=== PATIENT | male | born 1960 | race Caucasian/White ===

== ENCOUNTER → 2017-10-30 | Outpatient (CLI) | payer OTHER ==
[~2017-10-30] MED LIST: HYDR-2966 PO; HYDR-385 PO; LEVO500T83 PO; LISI20TA29 PO; ONDA4TAB PO
--- NOTE | 2017-10-30 19:07 | RADIOLOGY IMAGING REPORT ---
FACILITY: [facility] PATIENT NAME: Maxx Baldwin : 1960 MR: [id number] V: [id number] EXAM DATE: ORDERING PHYSICIAN: NATO GALLARDO TECHNOLOGIST: Location: [facility] - [place] Patient: Maxx Baldwin : 1960 Visit/Account:[id number] Date of Sevice: 10/30/2017 EXAMINATION: Scrotal ultrasound with duplex Doppler evaluation. HISTORY: Right testicular pain. COMPARISON: None. FINDINGS: Right testis: Normal size, morphology, and echogenicity. The right testis measures 3.3 x 2.8 x 2.4 cm . No focal intratesticular mass. The right testis demonstrates normal vascularity with color and spec tral Doppler. Right epididymis: The right epididymis is heterogeneous with increased vascularity, which may be comp atible with epididymitis. The right epididymal head measures 1.3 cm. There is a large complex right hydrocele with multiple septations and echogenic fluid. There is some increased vascularity in the adjacent scrotal wall. Left testis: Normal size, morphology, and echogenicity. The left testis measures 3.4 x 2.0 x 2.1 cm. No focal intratesticular mass. The left testis demonstrates normal vascularity with color and spectra l Doppler. Left epididymis: Normal ultrasound appearance with normal vascularity. The left epididymal head measu res 0.6 cm. Normal vascularity with Doppler. No left-sided hydrocele. There is a small left varicocele. IMPRESSION: 1. Normal ultrasound appearance of the testicles, with normal vascularity. 2. The right epididymis is heterogeneous and appears hypervascular. Ultrasound appearance may be comp atible with epididymitis. 3. Large complex right hydrocele with multiple septations and echogenic fluid. Infected hydrocele or pyocele is not excluded. There is some increased vascularity in the adjacent scrotal wall which could represent cellulitis. 4. Small left varicocele. Findings were discussed with NATO GALLARDO at 10/30/2017 7:01 PM. Report Dictated By: Alfredo Sanches MD at 10/30/2017 6:54 PM Report E-Signed By: Alfredo Sanches MD at 10/30/2017 7:03 PM WSN:[id number]
== END ==
LOC: US 17:39
PROVIDERS: ATTEND Nurse Practitioner Family
DX: N45.1 Epididymitis (principal)
CPT/HCPCS: 76870

== ENCOUNTER 2017-10-31 17:43 | Emergency (ER) | payer OTHER ==
[2017-10-31] MEDS ORDERED: LISI20TA29 PO (17:56)
[2017-10-31] MEDS ORDERED: LEVO500T83 PO (17:57)
[2017-10-31] MEDS ORDERED: HYDR-2966 PO (17:57)
[2017-10-31] MEDS ORDERED: HYDR-385 PO (17:58)
--- NOTE | 2017-10-31 18:01 | ER Report ---
History and Physical Time Seen By MD: 18:00 Hx. of Stated Complaint: WAS HERE YESTERDAY. WAS GIVEN PAIN MEDS THAT HE TOOK TODAY ON AN EMPTY STOMACHE. HAS BEEN VOMITING EVER SINCE HPI/ROS CHIEF COMPLAINT: Vomiting HISTORY OF PRESENT ILLNESS: 57-year-old male presents ambulatory to the ER after being seen yesterday in urgent care and having an outpatient testicular ultrasound. He has a swollen right scrotum. An ultrasound showed septations in the hydrocele, epididymitis and edema in the scrotum consistent with cellulitis. Patient was started on Levaquin and hydrocodone for pain relief. He's been vomiting today and keep his medications down. He denies fever or chills. REVIEW OF SYSTEMS: Respiratory: No cough, no dyspnea. Cardiovascular: No chest pain, no palpitations. Gastrointestinal: As above Musculoskeletal: No back pain. Home Meds Active Scripts Ondansetron (ZOFRAN ODT) 4 Mg Tab.rapdis, 4 MG PO every 6 hours PRN for NAUSEA/VOMITING, #15 TAB TAKE 1 TABLET BY MOUTH EVERY 12 HOURS Prov:ELGIN REDDING DO 10/31/17 Reported Medications Hydrocodone Bit/Acetaminophen (HYDROCODON-ACETAMINOPHEN 5-325) 1 Each Tablet, 1- 2 EACH PO Q6H, #12 TAB 10/31/17 Levofloxacin 500 Mg Tab (LEVOFLOXACIN 500 MG TAB) 500 Mg Tablet, 500 MG PO, TAB 10/31/17 Hydrochlorothiazide (HYDROCHLOROTHIAZIDE) 25 Mg Tablet, 1 TAB PO QDAY, TAB 10/31/17 Lisinopril (LISINOPRIL) 20 Mg Tablet, 20 MG PO QDAY, TAB 10/31/17 Reviewed Nurses Notes: Yes Old Medical Records Reviewed: Yes Hx Substance Use Disorder: No Hx Alcohol Use: Yes (DAILY) Constitutional Vital Sign - Last 24 Hours 10/31/17 10/31/17 10/31/17 10/31/17 17:46 17:49 17:58 18:13 Pulse 71 69 69 Resp 16 B/P (MAP) 192/99 192/99 (130) Pulse Ox 91 92 87 O2 Delivery Room Air 10/31/17 10/31/17 10/31/17 10/31/17 18:28 18:43 18:58 19:11 Pulse 66 66 67 B/P (MAP) 138/89 (105) Pulse Ox 89 93 93 10/31/17 10/31/17 10/31/17 10/31/17 19:13 19:28 19:33 19:48 Pulse 65 ??? 60 61 Pulse Ox 95 94 95 93 Intake and Output 10/31/17 10/31/17 11/01/17 15:00 23:00 07:00 Intake Total 1000 ml Balance 1000 ml Physical Exam Vital signs stable, grossly elevated blood pressure, afebrile, pulse ox normal General Appearance: The patient is alert, has no immediate need for airway protection and no current signs of toxicity. Skin warm, dry, pink HEENT: Pupils equal and round no injection. Oropharynx without redness or exudate, mucous. Membranes are moist Respiratory: Chest is non tender, lungs are clear to auscultation. Cardiac: regular rate and rhythm Gastrointestinal: Abdomen is soft and non tender, no masses, bowel sounds normal. Genital: Circumcised male genitalia. The right scrotum is grossly swollen to twice its normal size. It is erythematous. It is mildly tender. Musculoskeletal: Neck: Neck is supple and non tender. No lymphadenopathy Extremities have full range of motion and are non tender. No edema, no calf tenderness Skin: No rashes or lesions. DIFFERENTIAL DIAGNOSIS: After history and physical exam differential diagnosis was considered for scrotal infection, epididymitis, cellulitis, UTI Medical Decision Making Data Points Result Diagram: 10/31/17 1752 10/31/17 1752 Laboratory Hematology Test 10/31/17 17:52 10/31/17 18:20 Red Blood Count 4.90 M/uL (4.00-5.60) Mean Corpuscular Volume 99.9 fL (80.0-96.0) Mean Corpuscular Hemoglobin 34.9 pg (26.0-33.0) Mean Corpuscular Hemoglobin Concent 35.0 g/dL (32.0-36.0) Red Cell Distribution Width 14.5 % (11.5-14.5) Mean Platelet Volume 8.7 fL (7.2-11.1) Neutrophils (%) (Auto) 83.2 % (39.4-72.5) Lymphocytes (%) (Auto) 6.2 % (17.6-49.6) Monocytes (%) (Auto) 10.3 % (4.1-12.4) Eosinophils (%) (Auto) 0.0 % (0.4-6.7) Basophils (%) (Auto) 0.3 % (0.3-1.4) Nucleated RBC Relative Count (auto) 0.1 /100WBC Neutrophils # (Auto) 8.1 K/uL (2.0-7.4) Lymphocytes # (Auto) 0.6 K/uL (1.3-3.6) Monocytes # (Auto) 1.0 K/uL (0.3-1.0) Eosinophils # (Auto) 0.0 K/uL (0.0-0.5) Basophils # (Auto) 0.0 K/uL (0.0-0.1) Nucleated RBC Absolute Count (auto) 0.01 K/uL Erythrocyte Sedimentation Rate 20 mm/HOUR (0-20) Sodium Level 137 mmol/L (137-145) Potassium Level 3.4 mmol/L (3.5-5.0) Chloride Level 94 mmol/L (98-107) Carbon Dioxide Level 24 mmol/L (22-30) Blood Urea Nitrogen 9 mg/dl (9-21) Creatinine 0.60 mg/dl (0.66-1.25) Glomerular Filtration Rate Calc > 60.0 Random Glucose 175 mg/dl (75-110) Calcium Level 9.5 mg/dl (8.4-10.2) Total Bilirubin 1.7 mg/dl (0.2-1.3) Aspartate Amino Transf (AST/SGOT) 93 U/L (0-35) Alanine Aminotransferase (ALT/SGPT) 89 U/L (0-56) Alkaline Phosphatase 91 U/L (0-126) C-Reactive Protein 6.9 mg/dl (<1.0) Total Protein 8.8 g/dl (6.3-8.2) Albumin 5.1 g/dl (3.5-5.0) Amylase Level 82 U/L (0-110) Lipase 343 U/L (23-300) Urine Color Yellow Urine Clarity Slightly-cloudy Urine pH 5.0 pH (4.8-9.5) Urine Specific Chancellor 1.021 Urine Protein 100 mg/dL (NEGATIVE) Urine Glucose (UA) 50 mg/dL (NEGATIVE) Urine Ketones 80 mg/dL (NEGATIVE) Urine Blood Negative (NEGATIVE) Urine Nitrite Negative (NEGATIVE) Urine Bilirubin Negative (NEGATIVE) Urine Urobilinogen Negative mg/dL (0.2-1.9) Urine Leukocyte Esterase Moderate (NEGATIVE) Urine RBC 7 /HPF (0-2/HPF) Urine WBC 245 /HPF (0-5/HPF) Urine Squamous Epithelial Cells Few /LPF (</=FEW) Urine Bacteria Negative /HPF (NONE-FEW) Urine Mucus Few /HPF (NONE-FEW) Chemistry Test 10/31/17 17:52 10/31/17 18:20 White Blood Count 9.8 k/uL (4.5-11.0) Red Blood Count 4.90 M/uL (4.00-5.60) Hemoglobin 17.1 g/dL (14.0-18.0) Hematocrit 49.0 % (42.0-52.0) Mean Corpuscular Volume 99.9 fL (80.0-96.0) Mean Corpuscular Hemoglobin 34.9 pg (26.0-33.0) Mean Corpuscular Hemoglobin Concent 35.0 g/dL (32.0-36.0) Red Cell Distribution Width 14.5 % (11.5-14.5) Platelet Count 124 K/uL (150-450) Mean Platelet Volume 8.7 fL (7.2-11.1) Neutrophils (%) (Auto) 83.2 % (39.4-72.5) Lymphocytes (%) (Auto) 6.2 % (17.6-49.6) Monocytes (%) (Auto) 10.3 % (4.1-12.4) Eosinophils (%) (Auto) 0.0 % (0.4-6.7) Basophils (%) (Auto) 0.3 % (0.3-1.4) Nucleated RBC Relative Count (auto) 0.1 /100WBC Neutrophils # (Auto) 8.1 K/uL (2.0-7.4) Lymphocytes # (Auto) 0.6 K/uL (1.3-3.6) Monocytes # (Auto) 1.0 K/uL (0.3-1.0) Eosinophils # (Auto) 0.0 K/uL (0.0-0.5) Basophils # (Auto) 0.0 K/uL (0.0-0.1) Nucleated RBC Absolute Count (auto) 0.01 K/uL Erythrocyte Sedimentation Rate 20 mm/HOUR (0-20) Glomerular Filtration Rate Calc > 60.0 Calcium Level 9.5 mg/dl (8.4-10.2) Total Bilirubin 1.7 mg/dl (0.2-1.3) Aspartate Amino Transf (AST/SGOT) 93 U/L (0-35) Alanine Aminotransferase (ALT/SGPT) 89 U/L (0-56) Alkaline Phosphatase 91 U/L (0-126) C-Reactive Protein 6.9 mg/dl (<1.0) Total Protein 8.8 g/dl (6.3-8.2) Albumin 5.1 g/dl (3.5-5.0) Amylase Level 82 U/L (0-110) Lipase 343 U/L (23-300) Urine Color Yellow Urine Clarity Slightly-cloudy Urine pH 5.0 pH (4.8-9.5) Urine Specific Chancellor 1.021 Urine Protein 100 mg/dL (NEGATIVE) Urine Glucose (UA) 50 mg/dL (NEGATIVE) Urine Ketones 80 mg/dL (NEGATIVE) Urine Blood Negative (NEGATIVE) Urine Nitrite Negative (NEGATIVE) Urine Bilirubin Negative (NEGATIVE) Urine Urobilinogen Negative mg/dL (0.2-1.9) Urine Leukocyte Esterase Moderate (NEGATIVE) Urine RBC 7 /HPF (0-2/HPF) Urine WBC 245 /HPF (0-5/HPF) Urine Squamous Epithelial Cells Few /LPF (</=FEW) Urine Bacteria Negative /HPF (NONE-FEW) Urine Mucus Few /HPF (NONE-FEW) Urinalysis Test 10/31/17 18:20 Urine Color Yellow Urine Clarity Slightly-cloudy Urine pH 5.0 pH (4.8-9.5) Urine Specific Chancellor 1.021 Urine Protein 100 mg/dL (NEGATIVE) Urine Glucose (UA) 50 mg/dL (NEGATIVE) Urine Ketones 80 mg/dL (NEGATIVE) Urine Blood Negative (NEGATIVE) Urine Nitrite Negative (NEGATIVE) Urine Bilirubin Negative (NEGATIVE) Urine Urobilinogen Negative mg/dL (0.2-1.9) Urine Leukocyte Esterase Moderate (NEGATIVE) Urine RBC 7 /HPF (0-2/HPF) Urine WBC 245 /HPF (0-5/HPF) Urine Squamous Epithelial Cells Few /LPF (</=FEW) Urine Bacteria Negative /HPF (NONE-FEW) Urine Mucus Few /HPF (NONE-FEW) EKG/Imaging Imaging Outpatient ultrasound from yesterday reviewed, see below EXAMINATION: Scrotal ultrasound with duplex Doppler evaluation. HISTORY: Right testicular pain. COMPARISON: None. FINDINGS: Right testis: Normal size, morphology, and echogenicity. The right testis measures 3.3 x 2.8 x 2.4 cm. No focal intratesticular mass. The right testis demonstrates normal vascularity with color and spectral Doppler. Right epididymis: The right epididymis is heterogeneous with increased vascularity, which may be compatible with epididymitis. The right epididymal head measures 1.3 cm. There is a large complex right hydrocele with multiple septations and echogenic fluid. There is some increased vascularity in the adjacent scrotal wall. Left testis: Normal size, morphology, and echogenicity. The left testis measures 3.4 x 2.0 x 2.1 cm. No focal intratesticular mass. The left testis demonstrates normal vascularity with color and spectral Doppler. Left epididymis: Normal ultrasound appearance with normal vascularity. The left epididymal head measures 0.6 cm. Normal vascularity with Doppler. No left-sided hydrocele. There is a small left varicocele. IMPRESSION: 1. Normal ultrasound appearance of the testicles, with normal vascularity. 2. The right epididymis is heterogeneous and appears hypervascular. Ultrasound appearance may be compatible with epididymitis. 3. Large complex right hydrocele with multiple septations and echogenic fluid. Infected hydrocele or pyocele is not excluded. There is some increased vascularity in the adjacent scrotal wall which could represent cellulitis. 4. Small left varicocele. ED Course/Re-evaluation Clinical Indication for ER IV: Hydration, IV Access ED Course Patient was admitted to an examination room. H&P was done. The differential diagnoses was considered. On clinical examination. Patient has a benign abdomi nal examination. Close examination of his genitals shows enlarged right scrotum with edema and erythema. It is mildly tender. Patient was started on hydrocodone and Levaquin. He said several episodes of vomiting, unable to keep medication down. A peripheral IV was established. He was given Zofran. He was hydrated with 1 L saline. His diagnostic studies are unremarkable. His urinalysis shows significant WBCs. Likely reactive. Patient's given 2 g of Rocephin while we have IV access. He is advised ibuprofen 600 mg 3 times daily. He is advised warm compresses or hot soaks in the bathtub. Patient's advised to follow-up with urology if unimproved by Friday. Decision to Disposition Date: Oct 31, 2017 Decision to Disposition Time: 19:10 Depart Departure Latest Vital Signs Vital Signs Date Time Temp Pulse Resp B/P (MAP) Pulse Ox O2 Delivery O2 Flow Rate FiO2 10/31/17 19:48 61 93 10/31/17 19:11 138/89 (105) 10/31/17 17:46 16 Room Air Impression: Primary Impression: Epididymitis Additional Impressions: Cellulitis of scrotum Hyperglycemia Condition: Improved Disposition: HOME OR SELF-CARE Referrals: PRABHA PATEL MD, LYLE MD New Scripts Ondansetron (ZOFRAN ODT) 4 Mg Tab.rapdis 4 MG PO every 6 hours PRN for NAUSEA/VOMITING, #15 TAB TAKE 1 TABLET BY MOUTH EVERY 12 HOURS Prov: ELGIN REDDING DO 10/31/17 Patient Instructions: Cellulitis (ED), Epididymitis (ED) Additional Instructions: Take ibuprofen 200 mg 3 tablets 3 times a day with food Encourage fluid intake, apple juice or Gatorade Crackers and applesauce would be helpful to calm the stomach. We'll taking medication Prescription for Zofran/ondansetron to control your vomiting is provided Soak your scrotum in a warm to hot bath or apply a heating pad on medium to the affected area Follow-up with one of the 2 urologists listed on your paperwork if unimproved in 2-3 days Problem Qualifiers ELGIN REDDING DO Oct 31, 2017 18:01
[2017-10-31] MEDS ORDERED: NS(*) 0.9% 1000 ML BAG 1,000 ML IV ONE (18:04)
[2017-10-31] MEDS ORDERED: ONDANSETRON 4 MG/2 ML VIAL IVP ONE (18:05)
[2017-10-31 18:14] LABS: PLATELET COUNT, AUTOMATED 124 K/uL (150-450)
[2017-10-31] MEDS ORDERED: cefTRIAXone 2 GM VIAL IVP ONE (19:00)
[2017-10-31] MEDS ORDERED: KETOROLAC 30 MG/ML VIAL IVP ONE (19:00)
[2017-10-31 19:11] VITALS: BP 138/89
[2017-10-31] MEDS ORDERED: ONDA4TAB PO (19:13)
[2017-10-31] MEDS ORDERED: ONDANSETRON 4 MG ODT TH SL ONE (19:20)
== END 2017-10-31 19:59 | disposition home or self-care (01) ==
LOC: ER 18:01
DX: N45.1 Epididymitis (principal); N49.2 Inflammatory disorders of scrotum; R73.9 Hyperglycemia, unspecified
CPT/HCPCS: 81001; 82150; 83690; 85025; 85651; 86140; 96361; 96374; 96375; 99284; J0696; J1885; J2405; J7030; S0119; 82040; 82247; 82310; 82374; 82435; 82565; 82947; 84075; 84132; 84155; 84295; 84450; 84460; 84520

== ENCOUNTER → 2018-01-16 | Outpatient (REF) | payer BC, OTHER | LOC: ZZSENDIN 13:46 | PROVIDERS: ATTEND Urology | DX: N39.0 Urinary tract infection, site not specified (principal); B96.20 Unspecified Escherichia coli [E. coli] as the cause of diseases classified elsewhere | CPT/HCPCS: 87077; 87088; 87186 ==

== ENCOUNTER → 2018-05-05 | Outpatient (REF) | payer OTHER ==
[2018-05-05 10:26] LABS: PLATELET COUNT, AUTOMATED 129 K/uL (150-450)
== END ==
PROVIDERS: ATTEND Nurse Practitioner Family
DX: R06.02 Shortness of breath (principal)
CPT/HCPCS: 82040; 82247; 82310; 82374; 82435; 82565; 82947; 84075; 84132; 84155; 84295; 84450; 84460; 84484; 84520; 85025